=== PATIENT | female | born 1955 | race Two or more races ===

== ENCOUNTER 2019-04-12 10:01 | Day surgery (SDC) | payer OTHER ==
[~2019-04-12 10:01] MED LIST: ZOCOR20 MG PO
== END 2019-04-12 17:15 | disposition home or self-care (01) ==
LOC: CIR.AMB 10:01
DX: D26.1 Other benign neoplasm of corpus uteri (principal)

== ENCOUNTER → 2021-07-09 | Day surgery (SDC) | payer OTHER ==
[~2021-07-09] MED LIST changes: +DYMISTA NASAL S23 GM IH; +MEGESTROL ACETA40 MG PO; +PEPCID AC10 MG PO
== END | disposition home or self-care (01) ==
LOC: ADM 07-07 07:45 → CIR.AMB 07:00
PROVIDERS: ATTEND Obstetrics & Gynecology
DX: N85.01 Benign endometrial hyperplasia (principal); Z20.822 Contact with and (suspected) exposure to COVID-19

== ENCOUNTER 2022-07-21 06:29 | Day surgery (SDC) | payer OTHER ==
[~2022-07-21] VITALS: Ht 160 cm; Wt 653.6 kg
[~2022-07-21 06:29] MED LIST changes: +ENDOMETRIN100 MG
== END 2022-07-21 14:10 | disposition home or self-care (01) ==
LOC: CIR.AMB 06:29
PROVIDERS: ATTEND Orthopaedic Surgery Hand Surgery
DX: M13.842 Other specified arthritis, left hand (principal); M25.332 Other instability, left wrist; Z20.822 Contact with and (suspected) exposure to COVID-19